=== PATIENT | female | born 1995 | race Hispanic/Latino ===

== ENCOUNTER 2023-08-19 22:28 | Emergency (ER) | payer SELFPAY ==
[2023-08-19 22:33] VITALS: BP 119/95
--- NOTE | 2023-08-19 23:01 | ED.GENMED ---
History of Present Illness
General
Chief Complaint: Ear Problem
Time Seen by Provider: 08/19/23 22:51
Travel History
Have you had any contact with someone who has COVID-19?: No
Do you have any symptoms of coronavirus? Fever > 100 degrees, chills, cough, shortness of breath, sore throat, loss of taste or smell, muscle aches, or headache?: No
History of Present Illness
History of Present Illness:
Turkish language line Leonides, [id number], used for interpretation
28-year-old female with no significant past medical history presenting emergency department for evaluation of left ear pain that has been ongoing for about 5 days, today she noticed blood draining from the left ear and has had worsening pain. She
denies any fevers or other upper respiratory symptoms. She denies any history of similar. She denies any trauma to the affected area or placing anything in the ear other than the tissue she arrived with. Patient did not attempt any medications
prior to arrival.
Past History
Past History
ED Past Medical History: None
ED Past Surgical History: None
Social History
Tobacco: Non-smoker
Alcohol: None
Drug: None
Personal: Single
Living: with family
Review of Systems
Review of Systems
All Other Systems: ROS reviewed and negative except as documented in HPI and ROS
Phy Exam
Physical Exam
Physical Exam:
GENERAL: Alert , in no apparent distress
EYE: conjunctiva clear
Head: Normocephalic atraumatic
NECK: Supple,
ENT: mmm. Right TM/ear: Within normal limits. Left TM/ear: Erythema and dullness to the TM with small perforation and blood noted at the 7 to 8 o'clock position with small blood in the auditory canal. Patient has significant tragal tenderness.
No mastoid erythema or bulging. Patient also had tragal tenderness.
LUNGS: no acute respiratory distress
NEUROLOGICAL: Alert and oriented
SKIN: Warm and dry, skin intact.
MUSCULOSKELETAL: well perfused.
PSYCH: Normal and appropriate interaction.
Scores
Heart Failure Risk
Heart Failure Risk Score: Not Applicable
Heart Score for Chest Pain Patients
STEMI patient?: Not applicable
Withdrawal Assessment of Alcohol
Withdrawal Assessment Completed?: Not applicable
Course
Orders/Labs/Results
Orders:
Orders
08/19/23 22:59
Amoxicillin 875 mg/Clav 125 mg [Augmentin 875 mg/125 mg] 1 tablet PO NOW STA
Ibuprofen [Motrin] 600 mg PO NOW STA
Neomycin/Polymyxin/Hc [Cortisporin Otic Suspension] See Dose Instructions OTIC NOW STA
08/19/23 23:00
Flush (0.9% Sodium Chloride) [Flush (Nss)] See Dose Instructions IV PER PROTOCOL
Vital Signs
Initial and Last Documented VS:
Initial Vital Signs
Temp Pulse Resp BP Pulse Ox
98.3 F 71 16 119/95 99
08/19/23 22:33 08/19/23 22:33 08/19/23 22:33 08/19/23 22:33 08/19/23 22:33
Last Documented Vital Signs
Temp Pulse Resp BP Pulse Ox
98.3 F 71 16 119/95 99
08/19/23 22:33 08/19/23 22:33 08/19/23 22:33 08/19/23 22:33 08/19/23 22:33
MDM/Problems Addressed
Differential Diagnosis Includes:
TM rupture secondary to otitis media, otitis externa, foreign body
MDM/Problems Addressed:
28-year-old female present emergency department for evaluation of suspected ear infection but also found to have a small left tympanic membrane rupture. Will place on oral antibiotics as well as antibiotic drops. Anti-inflammatories for pain.
Patient unfortunately does not have medical insurance so we will provide her with the information for the medical clinic for outpatient follow-up. Will provide with first dose of meds here. Stable for discharge home and aware of return precautions.
*Pulse Oximetry
Patient hypoxic: no
*Critical Care Note
Total Time (30-74mins, 75-104mins- exclusive of procedures): Not Applicable
ED Attending Note
-
Portions of this chart may have been created with voice recognition software.� Occasional wrong word or��sound alike� substitutions may have occurred due to the inherent limitations of voice recognition software.
Discharge Plan
Departure
Patient Disposition: Home (Routine Discharge)
Date of Disposition: 08/19/23
Time of Disposition: 23:01
Patient with high blood pressure during this ER visit?: No
Discharge Problem:
Perforation of left tympanic membrane, Acute otitis media, left
Instructions: Ruptured Eardrum (DC)
Prescriptions:
New
amoxicillin-pot clavulanate 875-125 mg tablet
1 tab PO BID 10 Days Qty: 20 0RF
kregcywj-hvwtvyuml-UI 3.5-10,000-1 mg/mL-unit/mL-% drops,suspension
4 drp otic (ear) TID 10 Days Qty: 10 0RF
Referrals:
[facility] [Outside]
Interventions
Interventions:
*Risk Screen - Suicide Last Done: 08/19/23 22:33
*General Assessment Last Done: 08/19/23 22:33
*Neglect/Abuse Screening Last Done: 08/19/23 22:33
*ED COVID-19 Vaccine History Last Done: 08/19/23 22:33
Discharge Date and Time
Print Language: WOLOF
[2023-08-19] MEDS: AUGMENTIN 875 MG/125 MG 1 TABLET PO (23:16)
[2023-08-19] MEDS: MOTRIN 600 MG PO (23:16)
[2023-08-19] MEDS: CORTISPORIN OTIC SUSPENSION 4 DROP OTIC (23:19)
[2023-08-19 23:28] VITALS: BP 96/66
== END 2023-08-19 23:28 | disposition home or self-care (01) ==
LOC: EMR 22:28
PROVIDERS: EMERGENCY PHYSICIAN Emergency Medicine
DX: H66.92 Otitis media, unspecified, left ear (principal); H72.92 Unspecified perforation of tympanic membrane, left ear
CPT/HCPCS: 99283

== ENCOUNTER → 2023-11-18 09:32 | Outpatient (REF) | payer OTHER, SELFPAY ==
[2023-11-18 10:34] LABS: Urine Albumin Negative (Neg - Trace); Urine Bilirubin Negative (Negative); Urine Character Clear (Clear); Urine Color Yellow; Urine Glucose Negative (Negative); Urine Ketone Negative (Negative); Urine Leukocyte 2+ (Negative); Urine Nitrite Negative (Negative); Urine Occult Blood Negative (Negative); Urine Urobilinogen Negative (Neg - 1+)
[2023-11-18 10:37] LABS: % Basophils 0.5 % (0-2); % Eosinophils 1.8 % (0-6); % Immature Granulocytes 0.2 % (0-0.5); % Lymphocytes 32.5 % (20.5-51.1); % Monocytes 5.7 % (1.7-9.3); % Neutrophils 59.3 % (42.2-75.2); Absolute Eosinophils 0.1 10^3/uL (0-0.7); Absolute Lymphocytes 2.1 10^3/uL (1.2-3.4); Absolute Monocytes 0.4 10^3/uL (0.1-0.6); Absolute Neutrophils 3.9 10^3/uL (1.4-6.5); Hematocrit 39.6 % (37.0-47.0); Hemoglobin 13.2 g/dL (12.0-16.0); Mean Corp Hgb Conc. 33.3 g/dL (33.0-37.0); Mean Corpuscular Hgb 30.8 pg (27.0-31.0); Mean Corpuscular Volume 92.3 fL (81.0-99.0); Mean Platelet Volume 9.7 fL (7.4-10.4); Nucleated Red Blood Cells % 0 %; Platelet Count 352 10^3/uL (130-400); Red Blood Cell Count 4.29 10^6/uL (4.20-5.40); Red Cell Dist. Width 12.1 % (11.5-14.5); White Blood Cell Count 6.5 10^3/uL (4.8-10.8)
[2023-11-18 11:14] LABS: Glycohemoglobin (HgbA1c) 5.3 % (4.0-5.6)
[2023-11-18 11:40] LABS: Urine Squamous Cell >30 /LPF (Few)
[2023-11-18 11:41] LABS: ALT (SGPT) 16 U/L (0-35); AST (SGOT) 23 U/L (14-36); Albumin 4.4 g/dl (3.5-5.0); Alkaline Phosphatase 82 U/L (38-126); Blood Urea Nitrogen 8 mg/dl (7-17); Calcium 9.4 mg/dl (8.4-10.2); Carbon Dioxide 25 mmol/L (22-30); Chloride 104 mmol/L (98-107); Glucose 82 mg/dl (70-99); HDL Cholesterol 37 mg/dl; LDL Cholesterol, Calculated 128 mg/dl; Potassium 4.5 mmol/L (3.5-5.1); Sodium 138 mmol/L (135-145); Total Bilirubin 0.4 mg/dl (0.2-1.3); Total Cholesterol 185 mg/dl (50-199); Total Protein 7.8 g/dl (6.3-8.2); Triglyceride 104 mg/dl (10-149); Urine Bacteria Few (Negative); Urine Red Blood Cell None Seen /HPF (0-2); Very Low Density Lipoprotein 20 mg/dl (0-30); eGFR > 60.00
[2023-11-18 11:59] LABS: Vitamin D, 25-OH*** 20.8 ng/mL (30-80)
[2023-11-18 12:12] LABS: TSH Reflex To Free T4 2.09 uIU/ml (0.47-4.68)
[2023-11-18 12:34] LABS: Vitamin B12 571 pg/ml (239-931)
== END ==
LOC: REG 09:32
PROVIDERS: ATTENDING PHYSICIAN Nurse Practitioner Acute Care
DX: Z00.00 Encounter for general adult medical examination without abnormal findings (principal)
CPT/HCPCS: 36415; 80053; 80061; 81003; 81015; 82306; 82607; 83036; 84443; 85025

== ENCOUNTER → 2023-12-23 13:59 | Outpatient (REF) | payer OTHER, SELFPAY | LOC: RAD 13:59 | PROVIDERS: ATTENDING PHYSICIAN Nurse Practitioner Acute Care | DX: M54.2 Cervicalgia (principal); H92.02 Otalgia, left ear; R51.9 Headache, unspecified | CPT/HCPCS: 70496; 70498; Q9967 ==